=== PATIENT | male | born 1955 | race Caucasian/White ===

== ENCOUNTER → 2024-03-31 08:14 | Outpatient (REF) | payer MEDICARE, SELFPAY | LOC: HWRCS 08:14 | PROVIDERS: ATTENDING PHYSICIAN Internal Medicine Cardiovascular Disease; FAMILY PHYSICIAN Internal Medicine Geriatric Medicine | DX: I51.7 Cardiomegaly (principal) | CPT/HCPCS: 93306 ==

== ENCOUNTER → 2024-04-20 08:18 | Outpatient (REF) | payer MEDICARE, SELFPAY | LOC: RAD 08:18 | PROVIDERS: ATTENDING PHYSICIAN Internal Medicine Cardiovascular Disease; FAMILY PHYSICIAN Internal Medicine Geriatric Medicine | DX: E78.2 Mixed hyperlipidemia (principal) | CPT/HCPCS: 75571 ==